=== PATIENT | male | born 1995 | race Caucasian/White ===

== ENCOUNTER 2017-10-30 06:56 | Emergency (ER) | payer OTHER ==
[~2017-10-30] VITALS: Ht 182.9 cm; Wt 86.2 kg
[2017-10-30] MEDS ORDERED: TDAP [DIPH/PERTUSSIS/TET] 0.5 ML VIAL IM ONE ×2 (07:30→07:34)
--- NOTE | 2017-10-30 07:31 | NUR ---
[facility] DT DIZZINESS-- PT IS ON S/P REPAIRED/SUTURED,LEFT HAND LACERATION DONE YESTERDAY AT [facility]. TDAP NOT UPDATED, PT IS AFEBRILE. VSS
--- NOTE | 2017-10-30 07:40 | NUR ---
RADIOLOGY PHYSICIAN ASSISTANT AT BEDSIDE
--- NOTE | 2017-10-30 07:58 | NUR ---
JOSSELYN CALLED FOR TX, SPOKE WITH SUNSHINE. CALL TX TO DR BARRETT FOR FURTHER INFO REGARDING TX.
[2017-10-30 08:00] LABS: BASOPHILS % (AUTO) 0.3 % (0.0-2.0); EOSINOPHILS % (AUTO) 0.2 % (0.0-6.0); HEMATOCRIT 36 % (39-51); HEMOGLOBIN 12.5 g/dL (13.5-17.5); LYMPHOCYTES # (AUTO) 1.9 /CMM (0.8-4.8); LYMPHOCYTES % (AUTO) 15.6 % (20.0-44.0); MEAN CORPUSCULAR HEMOGLOBIN 32 PG (26.0-33.0); MEAN CORPUSCULAR HGB CONC 35 g/dl (31.0-36.0); MEAN CORPUSCULAR VOLUME 93 fL (80-96); MONOCYTES # (AUTO) 0.7 /CMM (0.1-1.30); MONOCYTES % (AUTO) 5.4 % (2.0-12.0); NEUTROPHILS # (AUTO) 9.4 /CMM (1.8-8.9); NEUTROPHILS % (AUTO) 78.5 % (43.0-81.0); PLATELET COUNT (AUTO) 368 /CMM (150-450); RDW COEFFICIENT OF VARIATION 13.9 (11.5-15.0); RED BLOOD CELL COUNT(AUTO) 3.89 MIL/uL (4.5-6.0)
[2017-10-30 08:08] LABS: CALCIUM, SERUM 8.7 mg/dL (8.5-10.1); CREATININE 0.9 mg/dL (0.6-1.3); POTASSIUM 3.9 mmol/L (3.5-5.1)
[2017-10-30 08:16] LABS: INR 1.05 (0.87-1.13)
[2017-10-30 08:24] LABS: ALBUMIN 3.4 g/dL (3.4-5.0); BILIRUBIN,DIRECT 0.1 mg/dL (0.0-0.2); BILIRUBIN,TOTAL 0.3 mg/dL (0.2-1.0); TOTAL PROTEIN, SERUM 7.4 g/dL (6.4-8.2)
[2017-10-30] MEDS ORDERED: CEPHALEXIN MONOHYDRATE 500 MG CAPSULE PO ONE ×2 (08:29→08:30)
[2017-10-30 08:33] VITALS: BP 140/90
--- NOTE | 2017-10-30 08:33 | NUR ---
Patient discharg, remains in custody in stable condition. Written and verbal after care instructions given. Patient verbalizes understanding of instruction.
--- NOTE | 2017-10-30 08:33 | NUR ---
WOUND CARE DONE BY TECH
== END 2017-10-30 09:10 ==
LOC: ER 06:57
DX: S61.412A Laceration without foreign body of left hand, initial encounter (principal); S00.11XA Contusion of right eyelid and periocular area, initial encounter; F10.129 Alcohol abuse with intoxication, unspecified; Y04.0XXA Assault by unarmed brawl or fight, initial encounter; Y93.89 Activity, other specified; Y92.89 Other specified places as the place of occurrence of the external cause; Y99.8 Other external cause status
CPT/HCPCS: 29105; 36415; 73130; 80048; 80076; 85025; 85730; 90471; 90715; 99285; A4606; A6402 ×2; G0480; Z7610

== ENCOUNTER 2022-06-03 10:35 | Emergency (ER) | payer BC, MEDICAID ==
[~2022-06-03] VITALS: Ht 180.3 cm; Wt 79.8 kg
--- NOTE | 2022-06-03 10:40 | NUR ---
DR RAINEY AT BEDSIDE FOR EVAL
--- NOTE | 2022-06-03 11:00 | NUR ---
[id number] from cry help, c/o abd pain x today, +covid. PLACED ON BED, [id number], IN PAIN 10/10 PS
[2022-06-03] MEDS ORDERED: KETOROLAC TROMETHAMINE INJ 30 MG/ML VIAL ONE (11:09)
[2022-06-03] MEDS ORDERED: MAG HYDROX/AL HYDROX/SIMETH 30 ML UDC ONE (11:09)
[2022-06-03] MEDS ORDERED: FAMOTIDINE (20 MG) 20 MG TABLET ONE (11:09)
[2022-06-03] MEDS ORDERED: ONDANSETRON 4 MG TAB.RAPDIS ONE (11:10)
[2022-06-03] MEDS: MAG HYDROX/AL HYDROX/SIMETH 30 ML UDC PO ONE (11:14)
[2022-06-03] MEDS: FAMOTIDINE (20 MG) 20 MG TABLET PO ONE (11:14)
[2022-06-03] MEDS: KETOROLAC TROMETHAMINE INJ 60 MG/2 ML VIAL IM ONE (11:15)
[2022-06-03] MEDS: ONDANSETRON 4 MG TAB.RAPDIS SL ONE (11:16)
--- NOTE | 2022-06-03 11:33 | NUR ---
SWAB FOR COVID19 SENT TO LAB
[2022-06-03] MEDS ORDERED: ACET325C7 PO (12:26)
[2022-06-03] MEDS ORDERED: MAG355OR18 PO (12:26)
[2022-06-03] MEDS ORDERED: ONDA4TAB5 PO (12:26)
--- NOTE | 2022-06-03 12:34 | NUR ---
[facility] [employer] CALLED,UNABLE TO GIVE ME HIS NAME,[phone], HE WILL SEND SOMEONE TO PICK HIM UP
--- NOTE | 2022-06-03 13:00 | NUR ---
Patient discharged to home in stable condition. Written and verbal after care instructions given. Patient verbalizes understanding of instruction.
[2022-06-03 13:50] VITALS: BP 125/60
== END 2022-06-03 13:00 | disposition home or self-care (01) ==
LOC: ER 10:37
DX: U07.1 COVID-19 (principal); R10.13 Epigastric pain
CPT/HCPCS: 99283; 87426; 96372; J1885; Q0162; C9803